=== PATIENT | female | born 1995 | race American Indian/Alaskan Native ===

== ENCOUNTER 2018-05-02 14:09 | Emergency (ER) | payer MEDICAID ==
[2018-05-02 14:17] VITALS: BP 114/75
--- NOTE | 2018-05-02 14:44 | Emergency Department Report ---
ED General Adult HPI - General Chief complaint: Weakness Stated complaint: CHEST PAIN Time Seen by Provider: 05/02/18 14:36 Source: patient Mode of arrival: Ambulatory Limitations: No Limitations - History of Present Illness Initial comments: Patient is a 23-year-old [place] female who is presenting with sore throat. Patient states has had sore throat for the past day. Patient states this 5 out of 10 pain when she swallows. Patient has had subjective fevers as well. Patient does have some nausea but no diarrhea or vomiting. Patient denies cough or chest pain. Patient states she does have some mild fatigue. - Related Data Home Medications Medication Instructions Recorded Confirmed Last Taken No Known Home Medications [No 11/03/13 11/03/13 Unknown Reported Home Medications] Previous Rx's Medication Instructions Recorded Last Taken Type Azithromycin [Zithromax] 250 mg PO DAILY #6 tablet 05/02/18 Unknown Rx Ondansetron [Zofran Odt] 4 mg PO Q8HR PRN #10 tab.rapdis 05/02/18 Unknown Rx predniSONE [Deltasone] 10 mg PO QDAY #5 tab 05/02/18 Unknown Rx traMADol [Ultram] 50 mg PO Q6HR PRN #12 tablet 05/02/18 Unknown Rx Allergies Allergy/AdvReac Type Severity Reaction Status Date / Time No Known Allergies Allergy Unverified 08/15/13 15:38 ED Review of Systems ROS: Stated complaint: CHEST PAIN Other details as noted in HPI Comment: All other systems reviewed and negative ED Past Medical Hx - Past Medical History Previous Medical History?: No Additional medical history: born premature - Surgical History Past Surgical History?: No - Social History Smoking Status: Never Smoker Substance Use Type: None - Medications Home Medications: Home Medications Medication Instructions Recorded Confirmed Last Taken Type No Known Home Medications [No 11/03/13 11/03/13 Unknown History Reported Home Medications] Azithromycin [Zithromax] 250 mg PO DAILY #6 tablet 05/02/18 Unknown Rx Ondansetron [Zofran Odt] 4 mg PO Q8HR PRN #10 tab.rapdis 05/02/18 Unknown Rx predniSONE [Deltasone] 10 mg PO QDAY #5 tab 05/02/18 Unknown Rx traMADol [Ultram] 50 mg PO Q6HR PRN #12 tablet 05/02/18 Unknown Rx ED Physical Exam - General Limitations: No Limitations General appearance: alert, in no apparent distress - Head Head exam: Present: atraumatic, normocephalic - Eye Eye exam: Present: normal appearance - ENT ENT exam: Present: mucous membranes moist. Absent: normal orophraynx (patient has some pharyngeal erythema. His also some shotty anterior cervical lymph nodes present.) - Neck Neck exam: Present: normal inspection - Respiratory Respiratory exam: Present: normal lung sounds bilaterally. Absent: respiratory distress - Cardiovascular Cardiovascular Exam: Present: regular rate, normal rhythm. Absent: systolic murmur, diastolic murmur, rubs, gallop - GI/Abdominal GI/Abdominal exam: Present: soft, normal bowel sounds - Extremities Exam Extremities exam: Present: normal inspection - Back Exam Back exam: Present: normal inspection - Neurological Exam Neurological exam: Present: alert, oriented X3 - Psychiatric Psychiatric exam: Present: normal affect, normal mood - Skin Skin exam: Present: warm, dry, intact, normal color. Absent: rash ED Course Vital Signs 05/02/18 14:15 Temperature 99.3 F Pulse Rate 81 Respiratory 16 Rate Blood Pressure 114/75 O2 Sat by Pulse 100 Oximetry ED Medical Decision Making - Medical Decision Making Patient meets criteria for empiric treatment for pharyngitis and she will be discharged home. Critical care attestation.: If time is entered above; I have spent that time in minutes in the direct care of this critically ill patient, excluding procedure time. ED Disposition Clinical Impression: Pharyngitis Disposition: DC-01 TO HOME OR SELFCARE Is pt being admited?: No Does the pt Need Aspirin: No Condition: Stable Instructions: Pharyngitis (ED) Prescriptions: Azithromycin [Zithromax] 250 mg PO DAILY #6 tablet Ondansetron [Zofran Odt] 4 mg PO Q8HR PRN #10 tab.rapdis PRN Reason: Nausea And Vomiting predniSONE [Deltasone] 10 mg PO QDAY #5 tab traMADol [Ultram] 50 mg PO Q6HR PRN #12 tablet PRN Reason: Pain Referrals: PRIMARY CARE,MD [Primary Care Provider] - 3-5 Days
== END 2018-05-02 16:00 | disposition home or self-care (01) ==
LOC: ED 14:09
DX: J02.9 Acute pharyngitis, unspecified (principal)
CPT/HCPCS: 99282

== ENCOUNTER 2018-05-17 22:12 | Emergency (ER) | payer MEDICAID ==
[2018-05-17] MEDS ORDERED: ZOFRAN ODT ONE (22:40)
[2018-05-17] MEDS ORDERED: TYLENOL PO ONE (22:41)
[2018-05-17] MEDS ORDERED: ZOFRAN ODT PO ONE (22:48)
--- NOTE | 2018-05-17 23:38 | Emergency Department Report ---
ED Female HPI - General Chief complaint: Vaginal Bleeding Stated complaint: ABD PAIN, VAG BLEED Time Seen by Provider: 05/17/18 23:08 Source: patient, RN notes reviewed, old records reviewed Mode of arrival: Ambulatory Limitations: No Limitations - History of Present Illness Initial comments: This is a 23-year-old female. She is 3, para 1. Last menstrual period is in February. 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 Recently seen in this emergency room for evaluation of abdominal pain and incidental . Had a pelvic ultrasound which demonstrated a living intrauterine with estimated gestational age 6 weeks and 0 days, performed on 05/13/2018. She had also been complaining of nonspecific lower abdominal pain for a week, and had an abdomen and pelvis MRI which was performed which was negative for appendicitis. The patient presents today with a complaint of crampy suprapubic abdominal pain and vaginal bleeding and lower back pain. She also endorses nausea and vomiting but no anorexia. Her pain is achy and crampy, increases with palpation and decreases with rest. The patient also denies irritative, obstructive urinary symptoms. MD Complaint: vaginal bleeding -: Gradual Radiation: suprapubic Quality: cramping Consistency: intermittent Improves with: other (per history of present illness) Worsens with: other (her history of present) Are you Now?: Yes Associated Symptoms: vaginal bleeding, abdominal pain, nausea/vomiting. denies : vaginal discharge, fever/chills, headaches, loss of appetite, dysuria, hematuria, rash, seizure, shortness of breath, syncope, weakness - Related Data Sexually active: Yes Previous Rx's Medication Instructions Recorded Last Taken Type Azithromycin [Zithromax] 250 mg PO DAILY #6 tablet 05/02/18 Unknown Rx Ondansetron [Zofran Odt] 4 mg PO Q8HR PRN #10 tab.rapdis 05/02/18 Unknown Rx predniSONE [Deltasone] 10 mg PO QDAY #5 tab 05/02/18 Unknown Rx traMADol [Ultram] 50 mg PO Q6HR PRN #12 tablet 05/02/18 Unknown Rx Docusate Sodium [Colace] 100 mg PO BID PRN #20 capsule 05/13/18 Unknown Rx Metoclopramide [Reglan] 10 mg PO TID PRN #14 tab 05/13/18 Unknown Rx Vit-Fe Fumar-FA [ 1 tab PO QDAY #30 tablet 05/13/18 Unknown Rx Vitamin] Acetaminophen [Tylenol Arthritis] 650 mg PO Q6HR PRN #30 tablet.er 05/18/18 Unknown Rx Doxylamine Succinate/Vit B6 1 each PO QHS PRN #30 tablet. 05/18/18 Unknown Rx [Renu Morrow 10-10 mg Tablet] Rin Root [Rin] 250 mg PO QID PRN #30 capsule 05/18/18 Unknown Rx Vit Calc,Iron,Folic 1 each PO QDAY #30 tablet 05/18/18 Unknown Rx [ Vitamins] Allergies Allergy/AdvReac Type Severity Reaction Status Date / Time No Known Allergies Allergy Unverified 08/15/13 15:38 ED Review of Systems ROS: Stated complaint: ABD PAIN, VAG BLEED Other details as noted in HPI Comment: All other systems reviewed and negative ED Past Medical Hx - Past Medical History Previous Medical History?: Yes Additional medical history: born premature - Surgical History Past Surgical History?: No - Social History Smoking Status: Never Smoker Substance Use Type: None - Medications Home Medications: Home Medications Medication Instructions Recorded Confirmed Last Taken Type Azithromycin [Zithromax] 250 mg PO DAILY #6 tablet 05/02/18 Unknown Rx Ondansetron [Zofran Odt] 4 mg PO Q8HR PRN #10 tab.rapdis 05/02/18 Unknown Rx predniSONE [Deltasone] 10 mg PO QDAY #5 tab 05/02/18 Unknown Rx traMADol [Ultram] 50 mg PO Q6HR PRN #12 tablet 05/02/18 Unknown Rx Docusate Sodium [Colace] 100 mg PO BID PRN #20 capsule 05/13/18 Unknown Rx Metoclopramide [Reglan] 10 mg PO TID PRN #14 tab 05/13/18 Unknown Rx Vit-Fe Fumar-FA [ 1 tab PO QDAY #30 tablet 05/13/18 Unknown Rx Vitamin] Acetaminophen [Tylenol Arthritis] 650 mg PO Q6HR PRN #30 tablet.er 05/18/18 Unknown Rx Doxylamine Succinate/Vit B6 1 each PO QHS PRN #30 tablet. 05/18/18 Unknown Rx [Renu Morrow 10-10 mg Tablet] Rin Root [Rin] 250 mg PO QID PRN #30 capsule 05/18/18 Unknown Rx Vit Calc,Iron,Folic 1 each PO QDAY #30 tablet 05/18/18 Unknown Rx [ Vitamins] ED Physical Exam - General Limitations: No Limitations General appearance: alert, in no apparent distress - Head Head exam: Present: atraumatic, normocephalic - Eye Eye exam: Present: normal appearance, EOMI. Absent: nystagmus - ENT ENT exam: Present: normal exam, normal orophraynx, mucous membranes moist, normal external ear exam - Neck Neck exam: Present: normal inspection, full ROM - Respiratory Respiratory exam: Present: normal lung sounds bilaterally. Absent: respiratory distress - Cardiovascular Cardiovascular Exam: Present: regular rate, normal rhythm, normal heart sounds. Absent: bradycardia, tachycardia, irregular rhythm, systolic murmur, diastolic murmur, rubs, gallop - GI/Abdominal GI/Abdominal exam: Present: soft, tenderness, normal bowel sounds, other (there is no right lower quadrant tenderness. There is suprapubic tenderness. There is no rebound, guarding or peritoneal signs). Absent: distended, guarding, rebound, rigid, pulsatile mass - Rectal Rectal exam: Present: normal inspection, other (escorted by nurse Harper wall) - External exam: Present: normal external exam Speculum exam: Present: normal speculum exam. Absent: cervical discharge, vaginal bleeding Bi-manual exam: Present: normal bi-manual exam, other (escorted by nurse Harper wall). Absent: cervical motion tendernes, adnexal tenderness, adnexal mass, uterine enlargement, uterine tenderness - Extremities Exam Extremities exam: Present: normal inspection, full ROM, normal capillary refill. Absent: pedal edema, joint swelling, calf tenderness - Back Exam Back exam: Present: normal inspection, full ROM. Absent: tenderness, CVA tenderness (R), paraspinal tenderness, vertebral tenderness - Neurological Exam Neurological exam: Present: alert, oriented X3, CN II-XII intact, normal gait, other (Extraocular movements intact. Tongue midline. No facial droop. Facial sensation intact to light touch in the V1, V2, V3 distribution bilaterally. 5 and 5 strength in 4 extremities.. Sensation is intact to light touch in 4 extremities.). Absent: motor sensory deficit - Psychiatric Psychiatric exam: Present: normal affect, normal mood - Skin Skin exam: Present: warm, dry, intact, normal color. Absent: rash ED Course Vital Signs 05/17/18 05/17/18 05/17/18 22:27 22:34 22:47 Temperature 99.7 F H 99.7 F H Pulse Rate 85 84 Respiratory 18 18 18 Rate Blood Pressure 111/68 111/68 Blood Pressure [Right] O2 Sat by Pulse 100 100 Oximetry 05/17/18 05/18/18 05/18/18 23:47 01:00 01:05 Temperature 99.5 F Pulse Rate 80 Respiratory 14 16 16 Rate Blood Pressure Blood Pressure 118/65 [Right] O2 Sat by Pulse 100 100 Oximetry - Reevaluation(s) Reevaluation #1: 05/18/18 00:56 Differential diagnosis, including but not limited to: Urinary tract infection, miscarriage, constipation, round ligament pain Assessment and plan: 23-year-old female with over a week of abdominal pain now with crampy bleeding and suprapubic discomfort and tenderness. Her rectal temperature was 99.7, therefore afebrile, there is no right lower quadrant tenderness, there is no rebound or guarding, there is a negative Rovsing sign, and the patient had a negative MRI of her abdomen and pelvis within the past week. She endorses nausea, no active vomiting is noted by me, she is treated with acetaminophen, Zofran, laboratory studies, urinalysis, pelvic ultrasound is pending, type and screen was not sent on her previous evaluation so we will check that as well. Given lack of gynecologic and adnexal tenderness, I do not have a suspicion for ovarian torsion or cyst at this time. Reevaluation #2: 05/18/18 02:21 The patient is Rh+. Right lower quadrant is soft on repeat examination. Ultrasound demonstrates intrauterine with subchorionic bleed. She is tolerating liquid feeds. She will be discharged with nausea medicine, appropriate pain medicine, instructions to follow up with outpatient gynecology. ED Medical Decision Making - Lab Data Result diagrams: 05/18/18 00:17 05/18/18 00:17 Vital Signs 05/17/18 05/17/18 05/17/18 22:27 22:34 22:47 Temperature 99.7 F H 99.7 F H Pulse Rate 85 84 Respiratory 18 18 18 Rate Blood Pressure 111/68 111/68 O2 Sat by Pulse 100 100 Oximetry - Radiology Data Radiology results: report reviewed, image reviewed rint Report Referring Physician: CHELSEA LEIGH Patient Name: VALERIA BARR Date of : 1995 Sex: Female Report Date: 2018-05-18 Report Status: Finalized Findings [facility] [address] [place] [address] Ultrasound Report Signed Patient: VALERIA BARR MR#: [id number] : 1995 Acct:[id number] Age/Sex: 23 / F ADM Date: 05/17/18 Loc: ED Attending Dr: Ordering Physician: CHELSEA LEIGH MD Date of Service: 05/18/18 Procedure(s): US OB transvaginal Accession Number(s): [id number] cc: CHELSEA LEIGH MD FINAL REPORT EXAM: US OB TRANSVAGINAL HISTORY: vag bleed TECHNIQUE: Real-time sonography was performed of the gravid uterus transabdominally and endovaginally and images are submitted for interpretation. PRIORS: None. FINDINGS: There is a gestational sac within the uterus. There is a small subchorionic hematoma measuring 1.9 x 0.6 x 2.1 cm. There is a normal appearing pole measuring 0.65 centimeters for an estimated gestational age of 6 weeks 3 days. A normal-appearing yolk sac is identified. The heart is beating at a rate of one hundred seventeen beats per minute. Both ovaries are visualized and appear normal. The right ovary measures 2.7 x 1.9 x 2.1 cm and the left measures 3.5 x 2.5 x 2.8 cm. IMPRESSION: 1. Single live intrauterine gestation, estimated gestational age 7 weeks 3 days for an estimated date of confinement of 01/01/2019. 2. Small subchorionic hematoma. Transcribed By: ML Dictated By: CLARENCE FITZGERALD MD Electronically Authenticated By: CLARENCE FITZGERALD MD Signed Date/Time: 05/18/18 0122 Critical care attestation.: If time is entered above; I have spent that time in minutes in the direct care of this critically ill patient, excluding procedure time. ED Disposition Clinical Impression: Threatened miscarriage Disposition: DC-01 TO HOME OR SELFCARE Is pt being admited?: No Does the pt Need Aspirin: No Condition: Stable Instructions: Threatened Miscarriage (ED) Additional Instructions: Cultures were sent today, results will be available in the next 3-5 days. Have her primary care doctor or real estate branch manager contact medical records department to obtain culture results. Take the pain medication, nausea medication as needed/ directed. Follow up with an outpatient cash management specialist to initiate outpatient care. Do not have sex or sexual activity until cleared by a primary care cash management specialist. Return to the ER right away with new pain, worsened pain, migration of pain, fevers, chills, lethargy, irritability, projectile vomiting, change in mental status, confusion, inability to tolerate liquids or eats. Follow up with either/any illicit gynecology groups as soon as possible to start outpatient care. Referrals: PRIMARY CAREMD [Primary Care Provider] - 3-5 Days [facility] [Provider Group] - 3-5 Days [facility] [Provider Group] - 3-5 Days [facility] [Provider Group] - 3-5 Days
[2018-05-18 00:45] LABS: Hematocrit 33.6 % (30.3-42.9); Hemoglobin 10.7 gm/dl (10.1-14.3); Mean Corpuscular HGB Conc 32 % (30-34); Mean Corpuscular Volume 74 fl (79-97); Platelet Count 305 K/mm3 (140-440); Red Blood Count 4.56 M/mm3 (3.65-5.03)
[2018-05-18 01:07] LABS: Mean Corpuscular Hemoglobin 24 pg (28-32); Red Cell Distribution Width 20.4 % (13.2-15.2)
[2018-05-18 01:08] VITALS: BP 118/65
--- NOTE | 2018-05-18 01:26 | Ultrasound Report ---
FINAL REPORT EXAM: US OB TRANSVAGINAL HISTORY: vag bleed TECHNIQUE: Real-time sonography was performed of the gravid uterus transabdominally and endovaginally and images are submitted for interpretation. PRIORS: None. FINDINGS: There is a gestational sac within the uterus. There is a small subchorionic hematoma measuring 1.9 x 0.6 x 2.1 cm. There is a normal appearing pole measuring 0.65 centimeters for an estimated gestational age of 6 weeks 3 days. A normal-appearing yolk sac is identified. The heart is beating at a rate of one hundred seventeen beats per minute. Both ovaries are visualized and appear normal. The right ovary measures 2.7 x 1.9 x 2.1 cm and the left measures 3.5 x 2.5 x 2.8 cm. IMPRESSION: 1. Single live intrauterine gestation, estimated gestational age 7 weeks 3 days for an estimated date of confinement of 01/01/2019. 2. Small subchorionic hematoma.
--- NOTE | 2018-05-18 01:33 | Ultrasound Report ---
FINAL REPORT EXAM: US OB < = 14 WEEKS FETUS HISTORY: vag bleed TECHNIQUE: Real-time sonography was performed of the gravid uterus transabdominally and endovaginally and images are submitted for interpretation. PRIORS: None. FINDINGS: There is a gestational sac within the uterus. There is a small subchorionic hematoma measuring 1.9 x 0.6 x 2.1 cm. There is a normal appearing pole measuring 0.65 centimeters for an estimated gestational age of 6 weeks 3 days. A normal-appearing yolk sac is identified. The heart is beating at a rate of one hundred seventeen beats per minute. Both ovaries are visualized and appear normal. The right ovary measures 2.7 x 1.9 x 2.1 cm and the left measures 3.5 x 2.5 x 2.8 cm. IMPRESSION: 1. Single live intrauterine gestation, estimated gestational age 7 weeks 3 days for an estimated date of confinement of 01/01/2019. 2. Small subchorionic hematoma.
[2018-05-18 01:37] LABS: BUN/Creatinine Ratio 18; Blood Urea Nitrogen 7 mg/dL (7-17); Calcium 9.3 mg/dL (8.4-10.2); Hemolysis Index 0
[2018-05-18 02:14] LABS: Bilirubin,Urine NEG (Negative); Blood,Urine NEG (Negative); Color,Urine Yellow (Yellow); Mucus,Urine 1+ /HPF; Protein,Urine <15 mg/dL mg/dL (Negative)
[2018-05-18] MEDS ORDERED: ZOFRAN ODT PO ONE (02:40)
== END 2018-05-18 02:50 | disposition home or self-care (01) ==
LOC: ED 22:12
DX: O20.0 Threatened abortion (principal); O21.9 Vomiting of pregnancy, unspecified; Z3A.01 Less than 8 weeks gestation of pregnancy
CPT/HCPCS: 36415; 76801; 76817; 80048; 81001; 83735; 84702; 85027; 86850; 86900; 86901; 87086; 87210; 87591; Q0162

== ENCOUNTER 2018-05-22 19:51 | Emergency (ER) | payer SELFPAY ==
[2018-05-22 21:27] LABS: BUN/Creatinine Ratio 20; Blood Urea Nitrogen 8 mg/dL (7-17); Calcium 9.1 mg/dL (8.4-10.2); Hematocrit 36.5 % (30.3-42.9); Hemoglobin 11.7 gm/dl (10.1-14.3); Hemolysis Index 10; Mean Corpuscular HGB Conc 32 % (30-34); Mean Corpuscular Volume 74 fl (79-97); Platelet Count 307 K/mm3 (140-440); Red Blood Count 4.94 M/mm3 (3.65-5.03)
[2018-05-22 21:29] LABS: Bilirubin,Urine NEG (Negative); Blood,Urine NEG (Negative); Color,Urine Yellow (Yellow); Mucus,Urine 3+ /HPF; Protein,Urine <15 mg/dL mg/dL (Negative)
[2018-05-22 21:32] LABS: Mean Corpuscular Hemoglobin 24 pg (28-32); Red Cell Distribution Width 20.6 % (13.2-15.2)
[2018-05-22] MEDS ORDERED: CEPHULAC PO ONE (22:09)
--- NOTE | 2018-05-22 22:13 | Emergency Department Report ---
HPI - General Chief Complaint: Vaginal Bleeding Time Seen by Provider: 05/22/18 21:59 - HPI HPI: Room 26 The patient is 23-year-old female presenting with a chief complaint of constipation and abdominal pain. The patient states she has been constipated for the past 4-5 days lower abdominal pain as a consequence. Patient states she attempted to use an enema at home today but has not helped. Patient claims of fatigue nausea and vomiting for 1.5 weeks. Of note the patient was seen last week for lower abdominal pain and had an MRI of abdomen performed which was negative. Location: Abdomen Duration: 4-5 days Quality: Constipation, pain Severity: Moderate Modifying factors: [see above] Context: [see above] Mode of transportation: [not driving] ED Past Medical Hx - Past Medical History Additional medical history: born premature - Surgical History Past Surgical History?: No - Family History Family history: no significant - Social History Smoking Status: Never Smoker Substance Use Type: None (denies illicit drug use) - Medications Home Medications: Home Medications Medication Instructions Recorded Confirmed Last Taken Type Azithromycin [Zithromax] 250 mg PO DAILY #6 tablet 05/02/18 Unknown Rx Ondansetron [Zofran Odt] 4 mg PO Q8HR PRN #10 tab.rapdis 05/02/18 Unknown Rx predniSONE [Deltasone] 10 mg PO QDAY #5 tab 05/02/18 Unknown Rx traMADol [Ultram] 50 mg PO Q6HR PRN #12 tablet 05/02/18 Unknown Rx Docusate Sodium [Colace] 100 mg PO BID PRN #20 capsule 05/13/18 Unknown Rx Metoclopramide [Reglan] 10 mg PO TID PRN #14 tab 05/13/18 Unknown Rx Vit-Fe Fumar-FA [ 1 tab PO QDAY #30 tablet 05/13/18 Unknown Rx Vitamin] Acetaminophen [Tylenol Arthritis] 650 mg PO Q6HR PRN #30 tablet.er 05/18/18 Unknown Rx Doxylamine Succinate/Vit B6 1 each PO QHS PRN #30 tablet.dr 05/18/18 Unknown Rx [Dicemilia Morrow 10-10 mg Tablet] Rin Root [Rin] 250 mg PO QID PRN #30 capsule 05/18/18 Unknown Rx Vit Calc,Iron,Folic 1 each PO QDAY #30 tablet 05/18/18 Unknown Rx [ Vitamins] Lactulose [Cephulac] 20 gm PO QDAY PRN #90 ml 05/23/18 Unknown Rx ED Review of Systems ROS: Stated complaint: ABDOMINAL PAIN,VAGINAL BLEEDING Other details as noted in HPI Constitutional: fever Eyes: denies: eye pain ENT: denies: throat pain Cardiovascular: denies: chest pain Gastrointestinal: abdominal pain, nausea, vomiting Genitourinary: dysuria Musculoskeletal: denies: back pain Neurological: denies: headache Physical Exam - Physical Exam Vital Signs: Vital Signs 05/22/18 05/22/18 20:12 20:25 Temperature 99.5 F 99.5 F Pulse Rate 89 83 Respiratory 18 18 Rate Blood Pressure 112/68 112/68 O2 Sat by Pulse 100 100 Oximetry Physical Exam: GENERAL: The patient is well-developed well-nourished female lying on stretcher not appearing to be in acute distress. [] HEENT: Normocephalic. Atraumatic. Extraocular motions are intact. Patient has moist mucous membranes. NECK: Supple. No meningitic signs are noted. Trachea midline CHEST/LUNGS: Clear to auscultation. There is no respiratory distress noted. HEART/CARDIOVASCULAR: Regular. There is no tachycardia. There is no gallop rub or murmur. ABDOMEN: Abdomen is soft, with mild discomfort to palpation in the left lower quadrant and right upper quadrant. Patient has normal bowel sounds. There is no abdominal distention. SKIN: There is no rash. There is no edema. There is no diaphoresis. NEURO: The patient is awake, alert, and oriented. The patient is cooperative. The patient has no focal neurologic deficits. The patient has normal speech. Cranial nerves II through XII grossly intact, no drift MUSCULOSKELETAL: There is no evidence of acute injury. ED Course Vital Signs 05/22/18 05/22/18 20:12 20:25 Temperature 99.5 F 99.5 F Pulse Rate 89 83 Respiratory 18 18 Rate Blood Pressure 112/68 112/68 O2 Sat by Pulse 100 100 Oximetry - Reevaluation(s) Reevaluation #1: 05/23/18 00:55 Patient states she had a bowel movement prior to medication and subsequently refused enema and lactulose in the ED. Patient states she feels improved ED Medical Decision Making - Lab Data Result diagrams: 05/22/18 20:50 05/22/18 20:50 Laboratory Tests 05/22/18 05/22/18 05/22/18 20:50 20:50 20:50 WBC 8.9 RBC 4.94 Hgb 11.7 Hct 36.5 MCV 74 L MCH 24 L MCHC 32 RDW 20.6 H Plt Count 307 Sodium 129 L D Potassium 3.8 Chloride 93.5 L Carbon Dioxide 24 Anion Gap 15 BUN 8 Creatinine 0.4 L Estimated GFR > 60 BUN/Creatinine Ratio 20 Glucose 106 H Calcium 9.1 HCG, Quant [id number] H Urine Color Urine Turbidity Urine pH Ur Specific [place] Urine Protein Urine Glucose (UA) Urine Ketones Urine Blood Urine Nitrite Urine Bilirubin Urine Urobilinogen Ur Leukocyte Esterase Urine WBC (Auto) Urine RBC (Auto) U Epithel Cells (Auto) Urine Mucus 05/22/18 20:51 WBC RBC Hgb Hct MCV MCH MCHC RDW Plt Count Sodium Potassium Chloride Carbon Dioxide Anion Gap BUN Creatinine Estimated GFR BUN/Creatinine Ratio Glucose Calcium HCG, Quant Urine Color Yellow Urine Turbidity Clear Urine pH 6.0 Ur Specific [place] 1.028 Urine Protein <15 mg/dl Urine Glucose (UA) Neg Urine Ketones Neg Urine Blood Neg Urine Nitrite Neg Urine Bilirubin Neg Urine Urobilinogen 4.0 Ur Leukocyte Esterase Tr Urine WBC (Auto) 2.0 Urine RBC (Auto) 1.0 U Epithel Cells (Auto) 4.0 Urine Mucus 3+ - Radiology Data Radiology results: report reviewed (pelvic ultrasound), image reviewed (pelvic ultrasound) [facility] [address] [place] [address] Ultrasound Report Signed Patient: VALERIA SMILEY MR#: [id number] : 1995 Acct:[id number] Age/Sex: 23 / F ADM Date: 05/22/18 Loc: ED Attending Dr: Ordering Physician: JAVIER TUCKER MD Date of Service: 05/22/18 Procedure(s): US OB transvaginal Accession Number(s): [id number] cc: JAVIER TUCKER MD FINAL REPORT EXAM: US OB TRANSVAGINAL HISTORY: lower abdominal pain TECHNIQUE: Transvaginal imaging was obtained of the pelvis with Doppler interrogation of the adnexa and uterus. FINDINGS: The uterus is anteverted measuring 10.8 cm x 6.8 cm x 8.3 cm. Within the uterus is a well-formed gestational sac which contains a yolk sac and pole. The crown-rump length of the pole is 10.6 mm corresponding to a 7 week 1 day IUP. The heart is 150 BPM. Adjacent to the gestational sac is a hypoechoic area measuring 1.6 cm x 1.4 cm x 2.7 cm compatible with subchorionic bleed. There is minimal free fluid in the right adnexa. The right ovary measures 2.8 cm x 1.7 cm x 2.3 cm. There is a 2 cm complex cyst in the right ovary. The left ovary measures 3.5 cm x 2.5 cm x 2.7 cm. There is a 2.1 cm complex cyst in left ovary. Blood flow is unremarkable both ovaries. IMPRESSION: Single viable IUP, 7 weeks 1 day. The heart rate is 150 BPM. Subchorionic hemorrhage noted. Small functional cysts in both ovaries. Minimal free fluid in the right adnexal area. Transcribed By: RB Dictated By: BRITTANY ADORNO MD Electronically Authenticated By: BRITTANY ADORNO MD Signed Date/Time: 05/23/1837 DD/ TD/TT: 05/23/1837 - Differential Diagnosis constipation, threatened Critical care attestation.: If time is entered above; I have spent that time in minutes in the direct care of this critically ill patient, excluding procedure time. ED Disposition Clinical Impression: Constipation, , Subchorionic hemorrhage Disposition: - TO HOME OR SELFCARE Is pt being admited?: No Does the pt Need Aspirin: No Condition: Stable Instructions: Constipation (ED) Additional Instructions: Return to the emergency department immediately should you develop worsening symptoms, fever, inability to tolerate food or liquid or any other concerns. Prescriptions: Lactulose [Cephulac] 20 gm PO QDAY PRN #90 ml PRN Reason: Constipation Referrals: [facility] [Outside] - 3-5 Days AVEL SMILEY MD [Staff Physician] - [place] (Dr. 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 Please follow up with her for further evaluation) Time of Disposition: 00:56
[2018-05-23 00:10] VITALS: BP 104/54
[2018-05-23] MEDS ORDERED: REGLAN PO ONE (00:17)
--- NOTE | 2018-05-23 00:42 | Ultrasound Report ---
FINAL REPORT EXAM: US OB TRANSVAGINAL HISTORY: lower abdominal pain TECHNIQUE: Transvaginal imaging was obtained of the pelvis with Doppler interrogation of the adnexa and uterus. FINDINGS: The uterus is anteverted measuring 10.8 cm x 6.8 cm x 8.3 cm. Within the uterus is a well-formed gestational sac which contains a yolk sac and pole. The crown-rump length of the pole is 10.6 mm corresponding to a 7 week 1 day IUP. The heart is 150 BPM. Adjacent to the gestational sac is a hypoechoic area measuring 1.6 cm x 1.4 cm x 2.7 cm compatible with subchorionic bleed. There is minimal free fluid in the right adnexa. The right ovary measures 2.8 cm x 1.7 cm x 2.3 cm. There is a 2 cm complex cyst in the right ovary. The left ovary measures 3.5 cm x 2.5 cm x 2.7 cm. There is a 2.1 cm complex cyst in left ovary. Blood flow is unremarkable both ovaries. IMPRESSION: Single viable IUP, 7 weeks 1 day. The heart rate is 150 BPM. Subchorionic hemorrhage noted. Small functional cysts in both ovaries. Minimal free fluid in the right adnexal area.
--- NOTE | 2018-05-25 08:50 | Ultrasound Report ---
FINAL REPORT EXAM: US OB < = 14 WEEKS FETUS HISTORY: lower abdominal pain COMPARISONS: 05/17/2018 FINDINGS: Transabdominal grayscale, color Doppler and M-mode first-trimester ultrasound. Please note that transabdominal images were obtained on 05/22/2018 but not submitted for interpretation until 05/25/2018 Single living intrauterine is present with recorded cardiac activity of 152 beats per minute. [place]-rump length of approximately 9 millimeters corresponds to estimated gestational age of 6 weeks 6 days. No definite perigestational hemorrhage is identified on transabdominal ultrasound. The ovaries are sonographically unremarkable and measure 2.9 x 1.8 x 2.5 cm on the left and 2.7 x 2 x 2.5 cm on the right. IMPRESSION: Single living intrauterine with estimated gestational age of 6 weeks 6 days. Please see transvaginal ultrasound obtained on the same date.
== END 2018-05-23 01:07 | disposition home or self-care (01) ==
LOC: ED 19:51
DX: O20.9 Hemorrhage in early pregnancy, unspecified (principal); K59.00 Constipation, unspecified; Z3A.01 Less than 8 weeks gestation of pregnancy
CPT/HCPCS: 36415; 76801; 76817; 80048; 81001; 84702; 85027; 99284

== ENCOUNTER 2018-05-28 14:19 | Emergency (ER) | payer SELFPAY ==
[2018-05-28 14:29] VITALS: BP 103/60
--- NOTE | 2018-05-28 16:22 | Emergency Department Report ---
ED Abdominal Pain HPI - General Chief Complaint: Abdominal Pain Stated Complaint: VAGINAL PAIN Time Seen by Provider: 05/28/18 16:19 Source: patient Mode of arrival: Ambulatory Limitations: No Limitations - History of Present Illness Initial Comments: Patient with diagnosis threatened on last visit in May here is having persistent lower abdominal pain she denies vaginal bleeding she denies dysuria she denies that his discharge she denies fever she denies syncope or other complaints MD Complaint: abdominal pain -: Gradual, days(s), unknown Location: diffuse Migration to: no migration Severity scale (0 -10): 2 Quality: cramping Consistency: intermittent Improves With: nothing Worsens With: nothing Associated Symptoms: denies other symptoms. denies: nausea, vomiting, diarrhea , fever, chills, dysuria, hematemesis, hematochezia, melena, hematuria, anorexia , syncope - Related Data Previous Rx's Medication Instructions Recorded Last Taken Type Azithromycin [Zithromax] 250 mg PO DAILY #6 tablet 05/02/18 Unknown Rx Ondansetron [Zofran Odt] 4 mg PO Q8HR PRN #10 tab.rapdis 05/02/18 Unknown Rx predniSONE [Deltasone] 10 mg PO QDAY #5 tab 05/02/18 Unknown Rx traMADol [Ultram] 50 mg PO Q6HR PRN #12 tablet 05/02/18 Unknown Rx Docusate Sodium [Colace] 100 mg PO BID PRN #20 capsule 05/13/18 Unknown Rx Metoclopramide [Reglan] 10 mg PO TID PRN #14 tab 05/13/18 Unknown Rx Vit-Fe Fumar-FA [ 1 tab PO QDAY #30 tablet 05/13/18 Unknown Rx Vitamin] Acetaminophen [Tylenol Arthritis] 650 mg PO Q6HR PRN #30 tablet.er 05/18/18 Unknown Rx Doxylamine Succinate/Vit B6 1 each PO QHS PRN #30 tablet.dr 05/18/18 Unknown Rx [Renu Morrow 10-10 mg Tablet] Rin Root [Rin] 250 mg PO QID PRN #30 capsule 05/18/18 Unknown Rx Vit Calc,Iron,Folic 1 each PO QDAY #30 tablet 05/18/18 Unknown Rx [ Vitamins] Lactulose [Cephulac] 20 gm PO QDAY PRN #90 ml 05/23/18 Unknown Rx Cephalexin [Keflex] 500 mg PO Q6HR #28 capsule 05/28/18 Unknown Rx Allergies Allergy/AdvReac Type Severity Reaction Status Date / Time No Known Allergies Allergy Verified 05/28/18 14:25 ED Review of Systems ROS: Stated complaint: VAGINAL PAIN Other details as noted in HPI Comment: All other systems reviewed and negative Constitutional: denies: diaphoresis, fever, malaise Eyes: denies: eye discharge, vision change ENT: denies: dental pain, hearing loss, epistaxis Respiratory: denies: shortness of breath, SOB with exertion, SOB at rest, stridor Cardiovascular: denies: chest pain, palpitations, dyspnea on exertion, orthopnea , edema, syncope, paroxysmal nocturnal dyspnea Gastrointestinal: abdominal pain. denies: diarrhea, constipation, hematemesis, melena, hematochezia Genitourinary: denies: urgency, dysuria, frequency, hematuria, discharge Musculoskeletal: denies: joint swelling, arthralgia Skin: denies: change in color Neurological: denies: numbness, paresthesias, confusion Hematological/Lymphatic: denies: easy bruising, swollen glands ED Past Medical Hx - Past Medical History Previous Medical History?: No Additional medical history: born premature - Surgical History Past Surgical History?: No - Social History Smoking Status: Never Smoker Substance Use Type: None - Medications Home Medications: Home Medications Medication Instructions Recorded Confirmed Last Taken Type Azithromycin [Zithromax] 250 mg PO DAILY #6 tablet 05/02/18 Unknown Rx Ondansetron [Zofran Odt] 4 mg PO Q8HR PRN #10 tab.rapdis 05/02/18 Unknown Rx predniSONE [Deltasone] 10 mg PO QDAY #5 tab 05/02/18 Unknown Rx traMADol [Ultram] 50 mg PO Q6HR PRN #12 tablet 05/02/18 Unknown Rx Docusate Sodium [Colace] 100 mg PO BID PRN #20 capsule 05/13/18 Unknown Rx Metoclopramide [Reglan] 10 mg PO TID PRN #14 tab 05/13/18 Unknown Rx Vit-Fe Fumar-FA [ 1 tab PO QDAY #30 tablet 05/13/18 Unknown Rx Vitamin] Acetaminophen [Tylenol Arthritis] 650 mg PO Q6HR PRN #30 tablet.er 05/18/18 Unknown Rx Doxylamine Succinate/Vit B6 1 each PO QHS PRN #30 tablet. 05/18/18 Unknown Rx [Renu Morrow 10-10 mg Tablet] Rin Root [Rin] 250 mg PO QID PRN #30 capsule 05/18/18 Unknown Rx Vit Calc,Iron,Folic 1 each PO QDAY #30 tablet 05/18/18 Unknown Rx [ Vitamins] Lactulose [Cephulac] 20 gm PO QDAY PRN #90 ml 05/23/18 Unknown Rx Cephalexin [Keflex] 500 mg PO Q6HR #28 capsule 05/28/18 Unknown Rx ED Physical Exam - General Limitations: No Limitations General appearance: alert, in no apparent distress, anxious - Head Head exam: Present: atraumatic, normocephalic - Eye Eye exam: Present: PERRL, EOMI - ENT ENT exam: Present: normal exam, normal orophraynx - Neck Neck exam: Present: normal inspection. Absent: tenderness, meningismus - Respiratory Respiratory exam: Present: normal lung sounds bilaterally. Absent: respiratory distress, wheezes, rales, rhonchi, stridor, accessory muscle use, prolonged expiratory - Cardiovascular Cardiovascular Exam: Present: regular rate, normal rhythm - GI/Abdominal GI/Abdominal exam: Present: soft. Absent: distended, tenderness, guarding, rebound, rigid, mass, pulsatile mass - Extremities Exam Extremities exam: Present: normal inspection, normal capillary refill. Absent: pedal edema, joint swelling, calf tenderness - Back Exam Back exam: Present: normal inspection. Absent: CVA tenderness (R), CVA tenderness (L), muscle spasm, paraspinal tenderness, vertebral tenderness - Neurological Exam Neurological exam: Present: alert, oriented X3, CN II-XII intact. 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 ED Disposition Clinical Impression: Abdominal pain during Disposition: TO HOME OR SELFCARE Is pt being admited?: No Condition: Stable Instructions: Abdominal Pain (ED), Urinary Tract Infection in Women (ED), Abdominal Pain in (ED) Additional Instructions: See Dr. salter return immediately if new or alarming symptoms take the medicine as directed on [id number] as needed as directed for pain Prescriptions: Cephalexin [Keflex] 500 mg PO Q6HR #28 capsule Referrals: PRIMARY CARE, [Primary Care Provider] - 3-5 Days NICANOR SALTER MD [Staff Physician] - 3-5 Days Time of Disposition: 18:42
--- NOTE | 2018-05-28 18:11 | Ultrasound Report ---
FINAL REPORT PROCEDURE: US OB TRANSVAGINAL and transabdominal TECHNIQUE: Real-time transabdominal and transvaginal sonography of the uterus, placenta, amniotic fluid, adnexa, and fetus was performed with image documentation. Measurements were obtained to determine age/size. M-mode Doppler was used to document heartbeat. CPT 26652 and 51785 HISTORY: abd pain COMPARISON: 05/22/2018 FINDINGS: ADDITIONAL GESTATION: None. CRL: 17.9 mm, which corresponds to a gestational age of: 8 weeks, 2 days. Yolk Sac: Normal. Embryonic Cardiac Activity: 179 beats per minute Gestational Sac: Normal. There is a small subchorionic hemorrhage adjacent to the gestational sac, measuring 0.9 x 0.4 x 1.8 centimeters, decreased in size compared to the prior study Amniotic fluid: Normal. Cervix: Normal. Right Ovary: Normal. Left Ovary: Complex 2 centimeter cyst IMPRESSION: 1. Single live intrauterine gestation at approximately 8 weeks, 2 days, +/-5 days. 2. Previously seen small subchorionic hemorrhage is decreased in size compared to the prior study 3. Complete anatomic survey at 18-20 weeks suggested. PROCEDURE: TECHNIQUE: HISTORY: COMPARISON: FINDINGS: IMPRESSION:
--- NOTE | 2018-05-28 18:11 | Ultrasound Report ---
FINAL REPORT PROCEDURE: US OB TRANSVAGINAL and transabdominal TECHNIQUE: Real-time transabdominal and transvaginal sonography of the uterus, placenta, amniotic fluid, adnexa, and fetus was performed with image documentation. Measurements were obtained to determine age/size. M-mode Doppler was used to document heartbeat. CPT 12633 and 85925 HISTORY: abd pain COMPARISON: 05/22/2018 FINDINGS: ADDITIONAL GESTATION: None. CRL: 17.9 mm, which corresponds to a gestational age of: 8 weeks, 2 days. Yolk Sac: Normal. Embryonic Cardiac Activity: 179 beats per minute Gestational Sac: Normal. There is a small subchorionic hemorrhage adjacent to the gestational sac, measuring 0.9 x 0.4 x 1.8 centimeters, decreased in size compared to the prior study Amniotic fluid: Normal. Cervix: Normal. Right Ovary: Normal. Left Ovary: Complex 2 centimeter cyst IMPRESSION: 1. Single live intrauterine gestation at approximately 8 weeks, 2 days, +/-5 days. 2. Previously seen small subchorionic hemorrhage is decreased in size compared to the prior study 3. Complete anatomic survey at 18-20 weeks suggested.
== END 2018-05-28 19:05 | disposition home or self-care (01) ==
LOC: ED 14:19
DX: O26.891 Other specified pregnancy related conditions, first trimester (principal); Z3A.08 8 weeks gestation of pregnancy
CPT/HCPCS: 36415; 76801; 76817; 84702

== ENCOUNTER 2018-06-07 17:29 | Emergency (ER) | payer OTHER ==
[2018-06-07 20:27] VITALS: BP 113/69
[2018-06-07] MEDS ORDERED: TYLENOL PO ONE (20:52)
--- NOTE | 2018-06-07 21:07 | Emergency Department Report ---
HPI - General Chief Complaint: Abdominal Pain Time Seen by Provider: 06/07/18 20:45 - HPI HPI: Room 20 The patient is a 23-year-old female presenting with a chief complaint of abdominal pain after fall. The patient states she fell getting out of the 2 days ago landing on her right side and front. The patient states she has some abdominal pain after the fall but it improved with Tylenol. The patient states she would sleep and then awakened with lower abdominal pain. Patient denies vaginal bleeding but states the pain was persistence of this problem for her to come to the ED. Patient denies history of fever Location: Abdomen Duration: [See above] Quality: Pain Severity:05/30 Modifying factors: [see above] Context: [see above] Mode of transportation: [not driving] ED Past Medical Hx - Past Medical History Previous Medical History?: No Additional medical history: born premature - Surgical History Past Surgical History?: No - Family History Family history: no significant - Social History Smoking Status: Never Smoker Substance Use Type: None - Medications Home Medications: Home Medications Medication Instructions Recorded Confirmed Last Taken Type Azithromycin [Zithromax] 250 mg PO DAILY #6 tablet 05/02/18 Unknown Rx Ondansetron [Zofran Odt] 4 mg PO Q8HR PRN #10 tab.rapdis 05/02/18 Unknown Rx predniSONE [Deltasone] 10 mg PO QDAY #5 tab 05/02/18 Unknown Rx traMADol [Ultram] 50 mg PO Q6HR PRN #12 tablet 05/02/18 Unknown Rx Docusate Sodium [Colace] 100 mg PO BID PRN #20 capsule 05/13/18 Unknown Rx Metoclopramide [Reglan] 10 mg PO TID PRN #14 tab 05/13/18 Unknown Rx Vit-Fe Fumar-FA [ 1 tab PO QDAY #30 tablet 05/13/18 Unknown Rx Vitamin] Acetaminophen [Tylenol Arthritis] 650 mg PO Q6HR PRN #30 tablet.er 05/18/18 Unknown Rx Doxylamine Succinate/Vit B6 1 each PO QHS PRN #30 tablet. 05/18/18 Unknown Rx [Renu Morrow 10-10 mg Tablet] Rin Root [Rin] 250 mg PO QID PRN #30 capsule 05/18/18 Unknown Rx Vit Calc,Iron,Folic 1 each PO QDAY #30 tablet 05/18/18 Unknown Rx [ Vitamins] Lactulose [Cephulac] 20 gm PO QDAY PRN #90 ml 05/23/18 Unknown Rx Cephalexin [Keflex] 500 mg PO Q6HR #28 capsule 05/28/18 Unknown Rx ED Review of Systems ROS: Stated complaint: /ABD PAIN Other details as noted in HPI Constitutional: denies: fever Eyes: denies: eye pain ENT: denies: throat pain Cardiovascular: denies: chest pain Endocrine: denies: unexplained weight loss Gastrointestinal: abdominal pain Genitourinary: denies: abnormal menses Musculoskeletal: back pain Skin: denies: change in color Neurological: denies: headache Physical Exam - Physical Exam Vital Signs: Vital Signs 06/07/18 20:24 Temperature 99.7 F H Pulse Rate 97 H Respiratory 16 Rate Blood Pressure 113/69 O2 Sat by Pulse 100 Oximetry Physical Exam: GENERAL: The patient is well-developed well-nourished female lying on stretcher not appearing to be in acute distress. [] HEENT: Normocephalic. Atraumatic. Extraocular motions are intact. Patient has moist mucous membranes. NECK: Supple. Trachea midline CHEST/LUNGS: Clear to auscultation. There is no respiratory distress noted. HEART/CARDIOVASCULAR: Regular. There is no tachycardia. There is no gallop rub or murmur. ABDOMEN: Abdomen is soft, with mild discomfort to palpation in the midepigastric and suprapubic region. Patient has normal bowel sounds. There is no abdominal distention. SKIN: There is no rash. There is no edema. There is no diaphoresis. NEURO: The patient is awake, alert, and oriented. The patient is cooperative. The patient has normal speech MUSCULOSKELETAL: There is no evidence of acute injury. ED Course Vital Signs 06/07/18 20:24 Temperature 99.7 F H Pulse Rate 97 H Respiratory 16 Rate Blood Pressure 113/69 O2 Sat by Pulse 100 Oximetry ED Medical Decision Making - Radiology Data Radiology results: report reviewed (pelvic ultrasound, abdominal ultrasound), image reviewed (pelvic ultrasound, abdominal ultrasound) Pelvic ultrasound (read by radiologist)-single live intrauterine gestation at 9 weeks 5 days. Abdominal ultrasound (read by radiologist)-unremarkable ultrasound - Differential Diagnosis abdominal contusion, subchorionic hemorrhage, Critical care attestation.: If time is entered above; I have spent that time in minutes in the direct care of this critically ill patient, excluding procedure time. ED Disposition Clinical Impression: Abdominal pain during Disposition: DC-01 TO HOME OR SELFCARE Is pt being admited?: No Does the pt Need Aspirin: No Condition: Stable Instructions: Abdominal Pain (ED) Additional Instructions: Return to the emergency department immediately should you develop worsening symptoms, fever, inability to tolerate food or liquid or any other concerns. 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
--- NOTE | 2018-06-07 23:37 | Ultrasound Report ---
FINAL REPORT PROCEDURE: US OB < = 14 WEEKS FETUS TECHNIQUE: Real-time transabdominal sonography of the uterus, placenta, amniotic fluid, adnexa, and fetus was performed with image documentation. Measurements were obtained to determine age/size. M-mode Doppler was used to document heartbeat. CPT 63302 HISTORY: preg abd pain COMPARISON: 05/28/2018 FINDINGS: CRL: 28.2 mm, which corresponds to a gestational age of: 9 weeks, 5 days. Yolk Sac: Normal. Embryonic Cardiac Activity: 176 beats per minute Gestational Sac: Normal. Amniotic fluid: Normal. Right Ovary: Normal. Left Ovary: Normal. Estimated delivery date: 01/05/2019 IMPRESSION: Single live intrauterine gestation at approximately 9 weeks and 5 days. EDC by US 01/05/2019
--- NOTE | 2018-06-07 23:39 | Ultrasound Report ---
FINAL REPORT PROCEDURE: US OB TRANSVAGINAL TECHNIQUE: Real-time transvaginal sonography of the uterus, placenta, amniotic fluid, adnexa, and fetus was performed with image documentation. Measurements were obtained to determine age/size. M-mode Doppler was used to document heartbeat. CPT 81719 HISTORY: preg abd pain COMPARISON: No prior studies are available for comparison. FINDINGS: CRL: 28.2 mm, which corresponds to a gestational age of: 9 weeks, 5 days. Yolk Sac: Normal. Embryonic Cardiac Activity: 176 beats per minute Gestational Sac: Normal. Amniotic fluid: Normal. Right Ovary: Normal. Left Ovary: Normal. Estimated delivery date: 01/05/2019 IMPRESSION: Single live intrauterine gestation at approximately 9 weeks and 5 days. EDC by US 01/05/2019
--- NOTE | 2018-06-07 23:41 | Ultrasound Report ---
FINAL REPORT PROCEDURE: US ABDOMEN COMPLETE TECHNIQUE: Real-time sonography in multiple planes of the abdomen was performed with image documentation. CPT 91710 HISTORY: pain after fall COMPARISON: No prior studies are available for comparison. FINDINGS: Liver: Normal size and echotexture with no evidence of cystic or solid mass lesions. Gallbladder: Partially distended with normal outlines. Intrahepatic bile ducts: Normal caliber . Extrahepatic bile ducts: Normal in caliber. Common duct measured 3 millimeters in caliber.. Pancreas: Visualized pancreatic head and body demonstrate normal echotexture.. Aorta: Measures 1.3 centimeters in the midportion. Proximal and distal portions are not well visualized due to bowel gas.. RIGHT kidney: Normal echotexture. No focal renal mass, calculus, or hydronephrosis. Length: 11 x 5 x 5cm. LEFT kidney: Normal echotexture. No focal renal mass, calculus, or hydronephrosis . Length: 11 x 5 x 5cm. Spleen: Normal size and echotexture. No focal lesions. Intraperitoneal fluid: None . Other: None . IMPRESSION: Unremarkable study.
== END 2018-06-07 23:52 | disposition home or self-care (01) ==
LOC: ED 17:29
DX: O26.891 Other specified pregnancy related conditions, first trimester (principal); R10.13 Epigastric pain; Z3A.09 9 weeks gestation of pregnancy
CPT/HCPCS: 76700; 76801; 76817

== ENCOUNTER 2021-07-03 18:51 | Observation (INO) | payer MEDICAID, OTHER ==
[2021-07-04 05:06] VITALS: BP 128/63
== END 2021-07-04 07:11 | disposition home or self-care (01) ==
LOC: TRG 18:51 → APU 19:08 → TRG 23:13 → LD 23:13
PROVIDERS: ADMIT Obstetrics & Gynecology; ATTEND Obstetrics & Gynecology
DX: O99.891 Other specified diseases and conditions complicating pregnancy (principal); M54.5 Low back pain; Z3A.31 31 weeks gestation of pregnancy
CPT/HCPCS: 59025; 96372; 96374; G0378; J0595; J0702; J3105; J7120; 96360

== ENCOUNTER 2021-07-05 01:44 | Observation (INO) | payer OTHER ==
[2021-07-05] MEDS ORDERED: LACTATED RINGERS 1,000 ML IV ONE (02:57)
[2021-07-05] MEDS ORDERED: BETAMET ACET/BETAMET NA PH 6 MG/ML INJ 5 ML MDV IM ONE (03:31)
[2021-07-05] MEDS ORDERED: TERBUTALINE 1 MG/1 ML INJ SUB-Q ONE (03:57)
[2021-07-05] MEDS ORDERED: ACETAMINOPHEN 500 MG TAB PO ONE (04:01)
[2021-07-05] MEDS ORDERED: ONDANSETRON 4 MG/2 ML INJ IV PRN (05:40)
[2021-07-05] MEDS ORDERED: DOCUSATE SODIUM 100 MG CAP PO PRN (05:40)
[2021-07-05] MEDS ORDERED: MAGNESIUM HYDROXIDE (MOM) ORAL LIQD UDC PO PRN (05:40)
[2021-07-05] MEDS ORDERED: ACETAMINOPHEN 325 MG TAB PO PRN (05:40)
[2021-07-05] MEDS ORDERED: diphenhydrAMINE 25 MG CAP PO PRN ×2 (05:40→05:50)
[2021-07-05] MEDS ORDERED: ALUM-MAG HYDROXIDE-SIMETHICONE 200-200-20MG/5ML ORAL LIQD 30 ML PO PRN (05:40)
--- NOTE | 2021-07-05 05:40 | History and Physical Report ---
History of Present Illness Date of examination: 07/05/21 Date of admission: 07/05/2021 Chief complaint: I'm having stomach and back and pain. History of present illness: Pt, is a @ 31.3 weeks, [place] patient, who presented tonight with c/o stomach and back pain. States that the pain started on Tuesday. She was seen in triage on Tuesday night for the same complaint. She was given pain medication, terbutaline, and IV fluids. She was kept over night with no cervical change (/-2) and sent home. Tonight she is still rober but her cervical exam is essentially unchanged (/-4). History of labor @ 34 wks (2015) and 35 wks (2018) but states no other complications during . Both were NSVDs. She has had limited care this . States that she had one visit with an office in [place]. She was to return to adjust her EDC, but did not return. Denies medical, surgical, and [employer]CH[employer]IC[employer] history. Denies drug and alcohol use. Past History Past Medical History: no pertinent history Past Surgical History: no surgical history Family/Genetic History: none Social history: no significant social history - Obstetrical History Expected Date of Delivery: 09/03/21 Actual Gestation: 31 Week(s) 3 Day(s) : 3 Para: 2 Hx # Term Pregnancies: 0 Number of Pregnancies: 2 (At 34 and 35 wks) Spontaneous Abortions: 0 Induced : 0 Number of Living Children: 2 Medications and Allergies Allergies Allergy/AdvReac Type Severity Reaction Status Date / Time No Known Allergies Allergy Verified 05/28/18 14:25 Home Medications Medication Instructions Recorded Confirmed Last Taken Type No Known Home Medications [No 07/04/21 07/04/21 Unknown History Reported Home Medications] Review of Systems All systems: negative Musculoskeletal: low back pain - Vital Signs Vital signs: Vital Signs Temp Pulse Resp BP 98.2 F 76 16 116/67 07/05/21 02:46 07/05/21 02:46 07/05/21 02:46 07/05/21 02:46 Temp Pulse Resp BP Pulse Ox 98.2 F 76 16 116/67 07/05/21 02:46 07/05/21 02:46 07/05/21 02:46 07/05/21 02:46 Pt with contractions but unchanged cervical exam. Has received 2 doses of steroids (07/03, 07/05). Denies vaginal bleeding, LOF, ctxs. Pt states that she is feeling contractions. She was given terbutaline on a previous admission but has refused this admission because she did not like the way it made her feel. Consulted with Dr. Redd. Will admit to observation and monitor for continued contractions and cervical changed. If continued contractions or any cervical change, will initiate magnesium infusion. Patient aware and agrees with plane of care at this time. - Physical Exam Breasts: Positive: deferred Cardiovascular: Regular rate Lungs: Positive: Normal air movement Abdomen: Positive: normal appearance, soft Genitourinary (Female): Positive: normal external genitalia, normal perenium Vulva: both: normal Vagina: Positive: normal moisture Uterus: Positive: normal size (For 31 weeks gestation. ) Extremities: Positive: normal - Obstetrical FHR: category 1 Uterine Contraction Monitor Mode: External Cervical Dilatation: 1 (Intact BOW) Cervical Effacement Percentage: 50 station: -4 Uterine Contraction Pattern: Regular Uterine Tone Measurement Phase: Resting Uterine Contraction Intensity: Mild Results All other labs normal. labs drawn on admission. Assessment and Plan A: 26 y.o. @ 31.3 wks (dated by outside [place], [facility] 09/03/21), with contractions. Cervical exam 50/-4. - Patient Problems (1) 31 to 32 weeks gestation of Current Visit: Yes Status: Acute Plan to address problem: Monitor status through EFM. (2) uterine contractions in third trimester, antepartum Current Visit: Yes Status: Acute Plan to address problem: Admit to labor and delivery. Continuous EFM. Drawn labs. Initiate IV fluids. Ultrasound for well being.
[2021-07-05] MEDS ORDERED: LACTATED RINGERS 1,000 ML IV SCH (05:45)
--- NOTE | 2021-07-05 07:19 | Ultrasound Report ---
ULTRASOUND OBSTETRIC INDICATION / CLINICAL INFORMATION: Presentation, growth, cervical length. Clinical Gestational Age (GA): 31 weeks 4 days TECHNIQUE: Transabdominal. COMPARISON: None available. FINDINGS: There is a single intrauterine . Biparietal Diameter = 7.6 cm = 30 weeks, 2 day(s). Head Circumference = 26.2 cm = 28 weeks, 4 day(s). Abdominal Circumference = 27.6 cm = 31 weeks, 5 day(s). Femur Length = 6.4 cm = 32 weeks, 6 day(s). Average Ultrasound Age (AUA) = 30 weeks, 6 day(s). Heart Rate: 140 beats per minute. Estimated Weight in grams (if calculated): 1798 Estimated Weight Growth Percentile (if calculated): 39 Cervix: closed. Length in cm (if measured): 3.3 Maternal Adnexa: No significant abnormality. IMPRESSION: 1. Single, living intrauterine with estimated sonographic age of 32 weeks, 6 day(s). 2. No significant sonographic abnormality. Signer Name: Rojelio Tyler MD Signed: 07/05/2021 7:15 AM Workstation Name: [id number]
--- NOTE | 2021-07-05 07:44 | Event Note ---
Date: 07/05/21 (Pt did not understand the plan of care.) Received a call from the RN that patient stated that she did not understand the plan of care during admission. Went to room to speak with the patient. We discussed the need for magnesium infusion if her contractions continue. Pt is refusing terbutaline and magnesium infusion at this time. Informed patient that there are also other methods to slow down and stop contractions such as Procardia. She has refused this as well. Per RN, pt previously asked if there would be anything done to encourage labor. Explained to the patient that it is too early to deliver. Will have NICU team come and speak with patient regarding delivery. Plan for now is to re-examine cervix around 4pm and develop a plan of care based off exam.
[2021-07-05 07:59] LABS: Hematocrit 28.2 % (30.3-42.9); Mean Corpuscular HGB Conc 32 % (30-34); Mean Corpuscular Volume 71 fl (79-97); Platelet Count 258 K/mm3 (140-440); Red Blood Count 3.96 M/mm3 (3.65-5.03)
[2021-07-05 08:47] LABS: Monocytes # (Auto) 1.2 K/mm3 (0.0-0.8); Monocytes % (Auto) 5.2 % (0.0-7.3)
[2021-07-05 08:54] LABS: Lymphocytes % (Auto) 6.8 % (13.4-35.0)
[2021-07-05 08:55] LABS: Basophils % (Auto) 0.1 % (0.0-1.8); Lymphocytes # (Auto) 1.6 K/mm3 (1.2-5.4)
[2021-07-05 09:31] LABS: Bilirubin,Urine NEG (Negative); Blood,Urine NEG (Negative); Color,Urine Straw (Yellow); Mucus,Urine FEW /HPF; Protein,Urine <15 mg/dL mg/dL (Negative); Urobilinogen,Urine < 2.0 mg/dL (<2.0)
[2021-07-05 09:45] LABS: Hepatitis C Virus Antibody Non-Reactive (NonReactive)
[2021-07-05 09:52] LABS: Amphetamine Screen,Urine PRESUMPTIVE NEGATIVE; Benzodiazepines Screen,Urine PRESUMPTIVE NEGATIVE; Cannabinoid Screen,Urine PRESUMPTIVE NEGATIVE; Cocaine Screen,Urine PRESUMPTIVE NEGATIVE; Methadone Screen,Urine PRESUMPTIVE NEGATIVE; Opiate Screen,Urine PRESUMPTIVE NEGATIVE
[2021-07-05] MEDS ORDERED: PRENATAL VIT27-FE FUMARATE-FOLIC ACID VIT TAB PO SCH (10:00)
--- NOTE | 2021-07-05 13:32 | Discharge Summary ---
Providers - Providers Date of Admission: 07/05/21 05:40 Date of discharge: 07/05/21 (No longer rober. ) Attending physician: NICANOR SALTER Primary care physician: GERA CORTEZ MD Hospitalization Reason for admission: observation, other ( contractions. ) Discharge diagnosis: other (31.4 wks , undelivered. ) Pertinent studies: Pt was admitted to observation d/t contractions. Patient had refused terbutaline, magnesium infusion, and Procardia. Her cervical exam upon observation admission was 50/-[address] throughout admission. She had a category 1 monitor tracing. Her contractions stopped and pt stated that she was no longer feeling them. She also denied vaginal bleeding, LOF. There was positive movement. Pt was given office number to follow up in the for care. Discussed importance of care. Pt verbalized understanding and will call and schedule an appointment. Hospital course: S: Pt doing well. No longer feeling contractions. O: VSS. Cervical exam 50/-4 unchanged from previous exam. Category 1 monitor tracing. A: 26 y.o. @ 31.4 wks, no longer rober and in good condition to be discharged home. P: Discharge home with instructions. Pt to follow up in the office to establish care. Condition at discharge: Good Disposition: 01 HOME / SELF CARE / HOMELESS - Discharge Diagnoses (1) 31 to 32 weeks gestation of Status: Acute (2) uterine contractions in third trimester, antepartum Status: Resolved Plan - Provider Discharge Summary Activity: no sex for 6 weeks, no heavy lifting 4 weeks, no strenuous exercise Diet: routine Additional instructions: [] Smoking cessation referral if applicable(refer to patient education folder for contact #) [] Refer to [facility] Booklet Call your doctor immediately for: * Fever > 100.5 * Heavy vaginal bleeding ( >1 pad per hour) * Severe persistent headache * Shortness of breath * Reddened, hot, painful area to leg or breast Please schedule a appointment in our office to establish care. Refer to OB listing sheet given for our office address and number. PLEASE VISIT TRIAGE AGAIN IF you have any leakage of fluid, intense contractions that occur more than 4 an hour, vaginal bleeding like a period, and your baby is not moving like the baby normally does. - Follow up plan Follow up: PRIMARY CARE, [Primary Care Provider] - 7 Days
[2021-07-05 14:00] VITALS: BP 118/62
== END 2021-07-05 15:05 | disposition home or self-care (01) ==
LOC: TRG 01:44 → APU 01:46 → LD 05:40 → TRG 05:40
PROVIDERS: ADMIT Obstetrics & Gynecology; ATTEND Obstetrics & Gynecology
DX: O60.03 Preterm labor without delivery, third trimester (principal); Z20.822 Contact with and (suspected) exposure to COVID-19; M54.9 Dorsalgia, unspecified; R10.9 Unspecified abdominal pain; O99.891 Other specified diseases and conditions complicating pregnancy; Z3A.31 31 weeks gestation of pregnancy; Z79.899 Other long term (current) drug therapy
CPT/HCPCS: 36415; 59025; 76816; 80307; 81001; 85025; 86592; 86706; 86762; 86803; 86850; 86900; 86901; 87806; 96372; G0378; J0702; J7120; U0003; 85007; 96360

== ENCOUNTER 2021-07-12 14:19 | Outpatient (CLI) | payer OTHER ==
[2021-07-12] MEDS ORDERED: LACTATED RINGERS 1,000 ML IV ONE (17:00)
[2021-07-12 17:10] LABS: Hemoglobin 9.3 gm/dl (10.1-14.3); Mean Corpuscular HGB Conc 32 % (30-34); Platelet Count 280 K/mm3 (140-440); Red Blood Count 4.19 M/mm3 (3.65-5.03); Red Cell Distribution Width 16.1 % (13.2-15.2)
[2021-07-12 17:13] LABS: Mean Corpuscular Volume 69 fl (79-97)
[2021-07-12 17:34] LABS: Alanine Aminotransferase 11 units/L (7-56); Albumin 3.6 g/dL (3.9-5); Blood Urea Nitrogen 7 mg/dL (7-17); Calcium 9.2 mg/dL (8.4-10.2); Hemolysis Index 0
[2021-07-12 17:43] LABS: BUN/Creatinine Ratio 23
[2021-07-12 18:12] VITALS: BP 112/59
[2021-07-12 18:26] LABS: Total Cells Counted 100
[2021-07-12 18:27] LABS: Anisocytosis RARE; Hypochromasia 1+
[2021-07-12 18:28] LABS: Amphetamine Screen,Urine Negative; Benzodiazepines Screen,Urine Negative; Cannabinoid Screen,Urine Negative; Cocaine Screen,Urine Negative; Methadone Screen,Urine Negative; Opiate Screen,Urine Negative
[2021-07-12 18:46] LABS: Bilirubin,Urine NEG (Negative); Blood,Urine NEG (Negative); Color,Urine Yellow (Yellow); Mucus,Urine FEW /HPF; Protein,Urine <15 mg/dL mg/dL (Negative); Urobilinogen,Urine < 2.0 mg/dL (<2.0)
[2021-07-12] MEDS ORDERED: LACTATED RINGERS 1,000 ML IV SCH (19:00)
[2021-07-12] MEDS ORDERED: TERBUTALINE 1 MG/1 ML INJ SUB-Q ONE (19:00)
[2021-07-12] MEDS ORDERED: ACETAMINOPHEN 325 MG TAB PO ONE (20:00)
== END 2021-07-12 21:23 | disposition home or self-care (01) ==
LOC: APU 14:19 → TRG 14:19 → APU 14:20 → TRG 21:23
PROVIDERS: ATTEND Obstetrics & Gynecology
DX: O62.9 Abnormality of forces of labor, unspecified (principal); O26.893 Other specified pregnancy related conditions, third trimester; M54.5 Low back pain; R51.9 Headache, unspecified; Z3A.32 32 weeks gestation of pregnancy
CPT/HCPCS: 36415; 59025; 80053; 80307; 81001; 82731; 84112; 85007; 85025; 86592; 86706; 86762; 86850; 86900; 86901; 87806; 96360; 96361; 96372; J3105; J7120

== ENCOUNTER 2021-07-25 18:51 | Outpatient (CLI) | payer OTHER ==
[2021-07-25 19:32] VITALS: BP 119/60
[2021-07-25] MEDS ORDERED: LACTATED RINGERS 1,000 ML IV ONE (19:48)
[2021-07-25 20:29] LABS: Bilirubin,Urine NEG (Negative); Blood,Urine NEG (Negative); Color,Urine Yellow (Yellow); Mucus,Urine 2+ /HPF
[2021-07-25] MEDS ORDERED: TERBUTALINE 1 MG/1 ML INJ SUB-Q SCH (21:00)
== END 2021-07-25 20:15 | disposition home or self-care (01) ==
LOC: TRG 18:51 → APU 18:52 → TRG 20:15
PROVIDERS: ATTEND Obstetrics & Gynecology
DX: O62.9 Abnormality of forces of labor, unspecified (principal); O26.893 Other specified pregnancy related conditions, third trimester; M79.89 Other specified soft tissue disorders; Z3A.34 34 weeks gestation of pregnancy
CPT/HCPCS: 59025; 81001; 96360; 96372; J3105; J7120

== ENCOUNTER 2021-07-29 02:34 | Outpatient (CLI) | payer OTHER ==
[2021-07-29 02:57] VITALS: BP 130/79
[2021-07-29] MEDS ORDERED: LACTATED RINGERS 1,000 ML IV ONE (03:07)
[2021-07-29 03:40] LABS: Bacteria,Urine 1+ /HPF (Negative); Bilirubin,Urine NEG (Negative); Blood,Urine NEG (Negative); Color,Urine Yellow (Yellow); Mucus,Urine FEW /HPF; Protein,Urine <15 mg/dL mg/dL (Negative)
[2021-07-29 03:41] LABS: Amphetamine Screen,Urine Negative; Benzodiazepines Screen,Urine Negative; Cannabinoid Screen,Urine Negative; Cocaine Screen,Urine Negative; Methadone Screen,Urine Negative; Opiate Screen,Urine Negative
[2021-07-29] MEDS: TERBUTALINE 1 MG/1 ML INJ SUB-Q PRN ×3 (04:36→05:38)
== END 2021-07-29 08:55 | disposition home or self-care (01) ==
LOC: TRG 02:34 → APU 02:36 → TRG 08:55
PROVIDERS: ATTEND Obstetrics & Gynecology
DX: O62.9 Abnormality of forces of labor, unspecified (principal); O26.893 Other specified pregnancy related conditions, third trimester; R10.9 Unspecified abdominal pain; M54.9 Dorsalgia, unspecified; Z3A.35 35 weeks gestation of pregnancy
CPT/HCPCS: 36415; 59025; 80307; 81001; 84112; 87086; 87116; 96360; 96372; J3105; J7120

== ENCOUNTER 2021-08-04 23:31 | Outpatient (CLI) | payer OTHER ==
[2021-08-05 00:07] VITALS: BP 123/74
[2021-08-05] MEDS ORDERED: LACTATED RINGERS 1,000 ML IV ONE (00:19)
[2021-08-05 00:54] LABS: Bilirubin,Urine NEG (Negative); Blood,Urine NEG (Negative); Color,Urine Yellow (Yellow); Mucus,Urine FEW /HPF; Protein,Urine <15 mg/dL mg/dL (Negative); Urobilinogen,Urine < 2.0 mg/dL (<2.0)
[2021-08-05] MEDS: TERBUTALINE 1 MG/1 ML INJ SUB-Q PRN ×3 (01:04→01:56)
== END 2021-08-05 02:20 | disposition home or self-care (01) ==
LOC: TRG 23:31 → APU 23:37 → TRG 08-05 02:20
PROVIDERS: ATTEND Obstetrics & Gynecology
DX: O62.9 Abnormality of forces of labor, unspecified (principal); O26.853 Spotting complicating pregnancy, third trimester; Z3A.36 36 weeks gestation of pregnancy; Z79.899 Other long term (current) drug therapy
CPT/HCPCS: 59025; 81001; 82962; 96360; 96372; J3105; J7120

== ENCOUNTER 2021-08-13 20:49 | Outpatient (CLI) | payer OTHER ==
[2021-08-13 21:32] VITALS: BP 131/83
[2021-08-13] MEDS ORDERED: LACTATED RINGERS 1,000 ML IV ONE (21:53)
--- NOTE | 2021-08-13 23:28 | Ultrasound Report ---
US OB limited, US OB BPP wo non-stress INDICATION / CLINICAL INFORMATION: LEOBARDO. COMPARISON: 07/05/2021 FINDINGS: BREATHING MOVEMENT = 2 GROSS BODY MOVEMENT = 2 TONE = 2 QUALITATIVE AMNIOTIC FLUID VOLUME = 2 TOTAL BIOPHYSICAL SCORE = 8/8 AMNIOTIC FLUID INDEX (cm) = 7.6 PRESENTATION: Cephalic. HEART RATE (beats per minute): 161 IMPRESSION: 1. Single live intrauterine in cephalic presentation. No significant abnormality. 2. biophysical profile = 06/28 2. LEOBARDO measures 7.6 cm, within normal limits. Signer Name: Frank Almazan MD Signed: 08/13/2021 11:24 PM Workstation Name: [id number]
[2021-08-14 00:02] LABS: Bilirubin,Urine NEG (Negative); Blood,Urine NEG (Negative); Color,Urine Yellow (Yellow); Mucus,Urine 3+ /HPF
== END 2021-08-14 00:10 | disposition home or self-care (01) ==
LOC: TRG 20:49 → APU 20:52 → TRG 08-14 00:10
PROVIDERS: ATTEND Obstetrics & Gynecology
DX: O42.90 Premature rupture of membranes, unspecified as to length of time between rupture and onset of labor, unspecified weeks of gestation (principal); O62.9 Abnormality of forces of labor, unspecified; O26.893 Other specified pregnancy related conditions, third trimester; R10.9 Unspecified abdominal pain; Z3A.37 37 weeks gestation of pregnancy
CPT/HCPCS: 36415; 59025; 76815; 76819; 81001; 84112; 87086; 96360; J7120